=== PATIENT | male | born 1965 | race Caucasian/White ===

== ENCOUNTER 2023-03-14 16:36 | Emergency (ER) | payer MEDICAID ==
[2023-03-14] MEDS ORDERED: Sodium Chloride 0.9% 10 ML Syringe FLUSH PRN (16:52)
[2023-03-14] MEDS ORDERED: HYDROmorphone 0.5 MG/0.5 ML Syringe IVPUSH ONE ×2 (16:53→17:48)
[2023-03-14] MEDS ORDERED: Sodium Chloride 0.9% 1,000 ML IV ONE (16:53)
[2023-03-14] MEDS ORDERED: Ondansetron 4 MG/2 ML SDV IVPUSH ONE (16:53)
[2023-03-14] MEDS ORDERED: Ketorolac 30 MG/ML SDV IVPUSH ONE (16:53)
[2023-03-14 17:01] LABS: BASOPHILS PERCENT AUTO 0.4 % (0.0-1.0); EOSINOPHILS PERCENT AUTO 2.3 % (1.0-3.0); HEMATOCRIT 48.4 % (40.0-54.0); HEMOGLOBIN 16.6 g/dL (14.0-18.0); MEAN CORPUSCULAR HEMOGLOBIN 32.2 pg (27.0-34.0); MEAN CORPUSCULAR HGB CONC 34.3 g/dL (33.0-35.0); NEUTROPHILS PERCENT AUTO 70.3 % (42.2-75.2); PLATELET COUNT,PLT 259 10^3/uL (150-450); RED BLOOD CELL COUNT 5.15 10^6/uL (4.6-6.2)
[2023-03-14 17:11] LABS: APPEARANCE,URINE SLIGHTLY CLOUDY (CLEAR); BILIRUBIN,URINE NEGATIVE (NEGATIVE); COLOR,URINE YELLOW (YELLOW); GLUCOSE,URINE NEGATIVE (NEGATIVE); KETONES,URINE 15 (NEGATIVE); LEUKOCYTE ESTERASE,URINE NEGATIVE (NEGATIVE); NITRITE,URINE NEGATIVE (NEGATIVE); OCCULT BLOOD,URINE LARGE (NEGATIVE); PROTEIN,URINE 100 (NEGATIVE)
[2023-03-14 17:18] LABS: A/G RATIO 1.3; ALBUMIN 4.4 g/dL (3.4-5.0); BILIRUBIN TOTAL 0.8 mg/dL (0.2-1.0); BUN/CREATININE RATIO 14.2 (No establ ref range); C-REACTIVE PROTEIN 0.58 ng/dL (<=0.30); CALCIUM 8.8 mg/dL (8.5-10.1); CREATININE 1.55 mg/dL (0.70-1.30); EST CRCL DRUG DOSING (CG) 46.31 mL/min; PROTEIN TOTAL,TP 7.8 g/dL (6.4-8.2)
[2023-03-14 17:20] LABS: BACTERIA,URINE FEW /HPF (0-FEW/HPF); EPITHELIAL CELLS,URINE FEW /HPF (NOT SEEN); MUCUS,URINE MODERATE /LPF (NOT SEEN); RBC,URINE >100 /HPF (0-5); WBC,URINE 0-5 /HPF (0-5/HPF)
[2023-03-14 17:21] LABS: LACTIC ACID 0.8 mmol/L (0.4-2.0)
[2023-03-14] MEDS ORDERED: Take Home: Acetaminophen/HYDROcodone 325-5 MG, 5 Tab Pack PO ONE (18:34)
[2023-03-14] MEDS ORDERED: Take Home: Ondansetron 4 MG Tab.DIS, 5 Tab Pack PO ONE (18:34)
== END 2023-03-14 18:40 | disposition home or self-care (01) ==
LOC: DL.ED 16:36
DX: N20.0 Calculus of kidney (principal); Z88.0 Allergy status to penicillin
CPT/HCPCS: 36415; 74176; 80053; 81001; 83605; 85025; 86140; 96361; 96374; 96375; 96376; 99284; 99284-25; J1170; J1885; J2405; J3490; J7030